=== PATIENT | female | born 1960 | race Caucasian/White ===

== ENCOUNTER 2016-11-04 23:11 | Emergency (ER) | payer OTHER ==
[2016-11-05] MEDS ORDERED: Morphine INJ* 2 MG/ML 1 ML SYRINGE IV ONE (00:02)
[2016-11-05] MEDS ORDERED: Ondansetron INJ* 2 MG/ML VIAL IV ONE (00:02)
[2016-11-05] MEDS ORDERED: NS 0.9% 1000 ML* 1,000 ML IV ONE (00:02)
[2016-11-05 00:30] LABS: Urine Bilirubin Negative (Negative); Urine Glucose Negative (Negative); Urine Nitrite Negative (Negative)
[2016-11-05 00:31] LABS: Hematocrit 43 % (35-47); Hemoglobin 14.6 g/dl (12.0-16.0); Mean Corpuscular HGB Conc 34 g/dl (31-36); Mean Corpuscular Hemoglobin 26 pg (27-31); Mean Corpuscular Volume 77 fL (80-97); Mean Platelet Volume 7 um3 (7.4-10.4); Red Blood Count 5.53 10^6/ul (4.0-5.4); Red Cell Distribution Width 13 % (10.5-15)
[2016-11-05 00:40] LABS: Albumin 4.1 g/dL (3.2-5.2); BUN/Creatinine Ratio 18.9 (8-20); C Reactive Protein 17.67 mg/L (< 5.00); Calcium 9.2 mg/dL (8.6-10.3); EGFR African American 83.3 (>60); EGFR Non-African American 64.8 (>60); Globulin 3.2 g/dL (2-4); Potassium 3.4 mmol/L (3.5-5.0); Total Bilirubin 0.8 mg/dL (0.2-1.0); Total Protein 7.3 g/dL (6.4-8.9)
--- NOTE | 2016-11-05 00:52 | ED ---
Jr Urbina Anna, scribed for Marko Johnson MD on 11/04/16 at 2359 . Abdominal Pain/Female - HPI Summary HPI Summary: Patient is a 56 y/o female coming to [facility] presenting with intermittent, worsening bilateral lower abdominal pain that began two days ago. She describes the severity of the pain as 5/10. The pain is exacerbated by movement and she has had trouble getting up today. She denies fever, nausea, vomiting, and diarrhea. She has a history of constipation and has not had a BM for three days. She tried Advil and Pepto Bismol, to no relief. - History of Current Complaint Chief Complaint: EDAbdPain Stated Complaint: LOWER ABD PAIN Time Seen by Provider: 11/04/16 23:49 Hx Obtained From: Patient, Family/Freight Engineer - Accompanied by significant other Onset/Duration: Still Present Timing: Days Severity Initially: Moderate Severity Currently: Moderate Pain Intensity: 5 Pain Scale Used: 0-10 Numeric Aggravating Factor(s): Movement Alleviating Factor(s): Nothing Associated Signs and Symptoms: Positive: Constipation. Negative: Fever, Nausea , Vomiting, Diarrhea Allergies/Adverse Reactions: Allergies Allergy/AdvReac Type Severity Reaction Status Date / Time Peanut Oil Allergy See Comment Verified 11/05/16 00:53 PMH/Surg Hx/FS Hx/Imm Hx Endocrine/Hematology History: Denies: Hx Diabetes Cardiovascular History: Reports: Hx Hypertension - Takes daily Aspirin; no other medications for this - Immunization History Date of Tetanus Vaccine: unk Date of Influenza Vaccine: none Infectious Disease History: No Infectious Disease History: Denies: Traveled Outside the [place] in Last 30 Days - Family History Known Family History: Negative: Cardiac Disease, Diabetes - Social History Lives: With Family Alcohol Use: None Substance Use Type: Reports: None Smoking Status (MU): Never Smoked Tobacco Review of Systems Negative: Fever Gastrointestinal: Other - constipation Positive: Abdominal Pain. Negative: Vomiting, Diarrhea, Nausea All Other Systems Reviewed And Are Negative: Yes Physical Exam Triage Information Reviewed: Yes Vital Signs On Initial Exam: Initial Vitals Temp Pulse Resp BP Pulse Ox 98.9 F 102 16 188/107 98 11/04/16 23:25 11/04/16 23:25 11/04/16 23:25 11/04/16 23:25 11/04/16 23:25 Vital Signs Reviewed: Yes Appearance: Positive: Well-Appearing, Pain Distress - mild discomfort Skin: Positive: Skin Color Reflects Adequate Perfusion Head/Face: Positive: Normal Head/Face Inspection Eyes: Positive: VIOLETA ENT: Positive: Hearing grossly normal Neck: Positive: Supple Respiratory/Lung Sounds: Positive: Clear to Auscultation, Breath Sounds Present Cardiovascular: Positive: RRR Abdomen Description: Positive: Soft, Other: - mild bilat lower abd tenderness Bowel Sounds: Positive: Present Musculoskeletal: Positive: Strength/ROM Intact Neurological: Positive: Sensory/Motor Intact, Alert, Oriented to Person Place, Time Psychiatric: Positive: Affect/Mood Appropriate Diagnostics - Vital Signs Vital Signs Temp Pulse Resp BP Pulse Ox 11/04/16 23:35 98.9 F 102 16 188/107 98 11/04/16 23:25 98.9 F 102 16 188/107 98 - Laboratory Lab Results: Lab Results 11/05/16 11/05/16 11/05/16 Range/Units 00:15 00:15 00:15 WBC 13.0 H (3.5-10.8) 10^3/ul RBC 5.53 H (4.0-5.4) 10^6/ul Hgb 14.6 (12.0-16.0) g/dl Hct 43 (35-47) % MCV 77 L (80-97) fL MCH 26 L (27-31) pg MCHC 34 (31-36) g/dl RDW 13 (10.5-15) % Plt Count 183 (150-450) 10^3/ul MPV 7 L (7.4-10.4) um3 Neut % (Auto) 73.3 (38-83) % Lymph % (Auto) 15.7 L (25-47) % [place] % (Auto) 9.6 H (1-9) % Eos % (Auto) 0.9 (0-6) % Baso % (Auto) 0.5 (0-2) % Absolute Neuts (auto) 9.5 H (1.5-7.7) 10^3/ul Absolute Lymphs (auto) 2.0 (1.0-4.8) 10^3/ul Absolute Monos (auto) 1.3 H (0-0.8) 10^3/ul Absolute Eos (auto) 0.1 (0-0.6) 10^3/ul Absolute Basos (auto) 0.1 (0-0.2) 10^3/ul Absolute Nucleated RBC 0 10^3/ul Nucleated RBC % 0 Sodium 136 (133-145) mmol/L Potassium 3.4 L (3.5-5.0) mmol/L Chloride 102 (101-111) mmol/L Carbon Dioxide 27 (22-32) mmol/L Anion Gap 7 (2-11) mmol/L BUN 17 (6-24) mg/dL Creatinine 0.90 (0.51-0.95) mg/dL Est GFR ( Amer) 83.3 (>60) Est GFR (Non-Af Amer) 64.8 (>60) BUN/Creatinine Ratio 18.9 (8-20) Glucose 150 H (70-100) mg/dL Calcium 9.2 (8.6-10.3) mg/dL Total Bilirubin 0.80 (0.2-1.0) mg/dL AST 12 L (13-39) U/L ALT 16 (7-52) U/L Alkaline Phosphatase 65 (34-104) U/L C-Reactive Protein 17.67 H (< 5.00) mg/L Total Protein 7.3 (6.4-8.9) g/dL Albumin 4.1 (3.2-5.2) g/dL Globulin 3.2 (2-4) g/dL Albumin/Globulin Ratio 1.3 (1-3) Lipase 19 (11.0-82.0) U/L Urine Color Yellow Urine Appearance Cloudy Urine pH 6.0 (5-9) Ur Specific [place] 1.021 (1.010-1.030) Urine Protein Negative (Negative) Urine Ketones Negative (Negative) Urine Blood Negative (Negative) Urine Nitrate Negative (Negative) Urine Bilirubin Negative (Negative) Urine Urobilinogen Negative (Negative) Ur Leukocyte Esterase Negative (Negative) Urine Glucose Negative (Negative) Result Diagrams: 11/05/16 00:15 11/05/16 00:15 Lab Statement: Any lab studies that have been ordered have been reviewed, and results considered in the medical decision making process. - CT CT abd/pel CT Interpretation: Positive (See Comments) CT Interpretation Completed By: Radiologist - IMPRESSION: Small nonobstructing left renal stone. Moderate amount of solid stool. Re-Evaluation - Re-Evaluation First Eval Re-Evaluation Time: 03:03 Comment: Discussed results and plan of care with patient and family. Patient and family are agreeable with plan. Abdominal Pain Fem Course/Dx - Course Course Of Treatment: Patient is a 56 y/o female coming to [facility] presenting with intermittent, worsening bilateral lower abdominal pain that began two days ago. She describes the severity of the pain as 5/10. The pain is exacerbated by movement and she has had trouble getting up today. She denies fever, nausea, vomiting, and diarrhea. She has a history of constipation and has not had a BM for three days. She tried Advil and Pepto Bismol, to no relief. Patient was given Morphine and Zofran in the ED course. UA is WNL. Labs reveal c-reactive protein of 17.67, AST of 12, glucose of 150, 3.4 potassium, 1.3 absolute monos, 9.5 absolute neuts, 7 MPV, 26 MPH, 77 MCV, 5.53 RBC, 13.[address] abd/pel reveals no acute concerns. Patient will be discharged with follow up from primary care physician. Patient is agreeable with plan. - Diagnoses Provider Diagnoses: Abdominal pain, Renal colic Discharge - Discharge Plan Condition: Stable Disposition: HOME Patient Education Materials: Renal Colic (ED), Abdominal Pain (ED) Referrals: [facility] [Outside] Additional Instructions: Follow up with your primary care provider within 48 hours. Return to the Emergency Department for new or worsening symptoms. The documentation as recorded by the Jr miller Anna accurately reflects the service I personally performed and the decisions made by me, Marko Johnson MD.
[2016-11-05] MEDS ORDERED: Iohexol 300* (CONTRAST) 10 ML SDV IV ONE (01:33)
--- NOTE | 2016-11-05 06:03 | RAD ---
INDICATION: Abdominal pain COMPARISON: None TECHNIQUE: Axial source images were obtained from the hemidiaphragms to the symphysis pubis following administration of oral and intravenous contrast. 93 mL Omnipaque 300 was utilized. Coronal and sagittal reconstructed images were acquired. Lung bases: The lung bases are clear. Liver: The liver is normal in size. There are no masses. There is no ductal dilatation. Gallbladder: There are no calcified gallstones. There is no evidence of wall thickening or pericholecystic fluid. Spleen: The spleen is normal in size. There are no masses. Pancreas: There is no focal pancreatic mass or ductal dilatation. Adrenal glands: There is no evidence of adrenal mass. Kidneys: The kidneys are normal in size and position. There are prompt nephrograms and there is prompt excretion bilaterally. There are no renal parenchymal masses. There is a nonobstructive, 7 mm upper pole left renal calculus. Adenopathy: There is no evidence of adenopathy by size criteria. Fluid collections: There are no free or localized fluid collections. Vessels:There are no significant atherosclerotic changes involving the aorta. There is no focal aneurysm. The iliac vessels are normal in caliber. The IVC appears normal. GI tract: There are no acute CT bowel findings. There is no obstruction. The stomach and small bowel appear normal. The terminal ileum and appendix are normal. The remainder the colon is remarkable only for the presence of moderate stool. Pelvic organs: The uterus and adnexa appear normal Bladder: There are no bladder masses. Abdominal and pelvic soft tissues: The extraperitoneal abdominal and pelvic soft tissues appear normal.. Osseous structures: There are no acute osseous findings. Other: None IMPRESSION: 1. Nonobstructive 7 mm upper pole left renal calculus. 2. Moderate retained stool.
== END 2016-11-05 03:28 | disposition home or self-care (01) ==
LOC: ED 23:11
DX: N23 Unspecified renal colic (principal); K59.00 Constipation, unspecified; R10.30 Lower abdominal pain, unspecified
CPT/HCPCS: 36415; 74177; 80053; 81003; 83605; 83690; 85025; 86140; 96361; 96374; 96375; 99283; J2270; J2405; Q9967